=== PATIENT | female | born 1990 | race Caucasian/White ===

== ENCOUNTER 2022-06-25 11:24 | Emergency (ER) | payer BC, OTHER ==
[~2022-06-25] VITALS: Ht 152.4 cm; Wt 59.9 kg
[2022-06-25 11:28] VITALS: BP 110/78
--- NOTE | 2022-06-25 11:35 | NUR ---
Pt given specimen cup to provide urine sample and ambulated with a steady gait to lobby.
[2022-06-25 12:02] LABS: BASOPHILS % (AUTO) 0.6 % (0.0-2.0); EOSINOPHILS # (AUTO) 0.1 K/uL (0-0.4); EOSINOPHILS % (AUTO) 1.8 % (0.0-4.0); HEMATOCRIT 41.2 % (36-48); HEMOGLOBIN 14.1 g/dL (12.0-16.0); LYMPHOCYTES # (AUTO) 2.8 K/uL (2.5-16.5); LYMPHOCYTES % (AUTO) 39.1 % (20.5-51.1); MEAN CORPUSCULAR HEMOGLOBIN 32 pg (27-31); MEAN CORPUSCULAR HGB CONC 34 g/dL (33-37); MEAN CORPUSCULAR VOLUME 92.6 fL (80-94); MONOCYTES # (AUTO) 0.4 K/uL (0.8-1.0); NEUTROPHILS # (AUTO) 3.8 K/uL (1.8-7.7); NEUTROPHILS % (AUTO) 52.5 % (42.2-75.2); PLATELET COUNT (AUTO) 312 K/uL (140-450); RED BLOOD CELL COUNT(AUTO) 4.45 MIL/uL (4.20-5.40); RED CELL DISTRIBUTION WIDTH 13.4 % (11.6-13.7); WHITE BLOOD COUNT (AUTO) 7.2 K/uL (4.8-10.8)
[2022-06-25 12:29] LABS: ALBUMIN 3.9 g/dL (3.4-5.0); CARBON DIOXIDE 29.8 mmol/L (21-32); CREATININE 0.7 mg/dL (0.6-1.3); TOTAL BILIRUBIN 0.4 mg/dL (0.0-1.0)
[2022-06-25 12:33] LABS: ANION GAP 9.5 (8-16); POTASSIUM 3.3 mmol/L (3.5-5.1)
--- NOTE | 2022-06-25 13:11 | NUR ---
PT AMBULATED TO BED.
[2022-06-25] MEDS ORDERED: DICYCLOMINE HCL LIQUID 20 MG, ALUMINUM HYD/MAG/SIMETHICONE 30 ML, LIDOCAINE VISCOUS 2% ... PO ONE ×3 (13:50)
[2022-06-25] MEDS ORDERED: ACETAMINOPHEN EXTRA STRENGTH 500 MG TAB PO ONE (13:50)
[2022-06-25] MEDS ORDERED: FAMOTIDINE 20 MG TAB PO ONE (13:50)
--- NOTE | 2022-06-25 13:50 | NUR ---
31F presents to ED with c/o lower and mid upper ABD pain [id number]. Pt reports cramping like 4/10 pain to lower ABD, and burning like 4/10 pain mid upper ABD pain, states feeling pain throughout the day but not at night while asleep. Pt reports taking ibuprofen with no relief, denies fevers, chills, N/V/D, UTI symptoms. Pt placed in gown, on bedside night monitor, side rails x1.
[2022-06-25] MEDS ORDERED: ALUMINUM HYD/MAG/SIMETHICONE 30 ML UDC ONE (13:59)
[2022-06-25] MEDS ORDERED: DICYCLOMINE HCL LIQUID 10 MG/5 ML UDC ONE (13:59)
[2022-06-25] MEDS ORDERED: SUCR1TAB35 PO (14:01)
[2022-06-25] MEDS ORDERED: OMEP40EC23 PO (14:01)
[2022-06-25 14:20] VITALS: BP 108/72
--- NOTE | 2022-06-25 14:20 | NUR ---
Patient discharged with v/s stable. Written and verbal after care instructions about Pelvic pain and GERD given and explained. Patient alert, oriented and verbalized understanding of instructions. Ambulatory with steady gait. All questions addressed prior to discharge. ID band removed. Patient advised to follow up with PMD. Rx of Prilosex and Carafate given. Patient educated on indication of medication including possible reaction and side effects. Opportunity to ask questions provided and answered.
== END 2022-06-25 14:20 | disposition home or self-care (01) ==
LOC: MED 11:24
DX: K21.9 Gastro-esophageal reflux disease without esophagitis (principal); E87.6 Hypokalemia
CPT/HCPCS: 36415; 80053; 81002; 81025; 83690; 85025; 99284